=== PATIENT | female | born 1955 | race Two or more races ===

== ENCOUNTER 2025-02-20 20:46 | Emergency (ER) | payer OTHER ==
[~2025-02-20] VITALS: Ht 157.5 cm; Wt 82.6 kg
[2025-02-20 21:27] VITALS: BP 125/80; O2SAT 98
[2025-02-20] MEDS ORDERED: SYNTHROID137 MCG PO (21:29)
[2025-02-20] MEDS ORDERED: 0.9 % SODIUM CHLORIDE 1,000 ML IV STA (22:56)
[2025-02-20] MEDS ORDERED: BARIUM SULFATE 450 ML ORAL.SUSP PO ONE (23:21)
[2025-02-21 00:35] LABS: BASO % 0.9 % (0.1-1.2); EOS # 0.11 (0.04-0.54); EOS % 1.9 % (0.7-7.0); LYMPH # 1.82 (1.18-3.74); LYMPH % 31.8 % (19.3-53.1); MEAN PLATELET VOLUME 10.00 fl (9.4-12.4); MONO # 0.47 (0.24-0.82); MONO % 8.2 % (4.7-12.5); NEUT # 3.26 (1.56-6.13); NEUT % 57.0 % (34.0-71.1); RED CELL DISTRIBUTION WIDTH 13.0 % (11.6-14.4)
[2025-02-21 00:48] LABS: ERYTHROCYTE SEDIMENTATION RATE 5 mm/hr (0-30)
[2025-02-21 00:53] LABS: ALT/SGPT 20 U/L (12-78); AST/SGOT 20 U/L (15-37); BILIRUBIN TOTAL 0.53 mg/dL (0.3-1.2); BUN CREA RATIO 14 (7.0-25.0); CREATININE SERUM 0.94 mg/dL (0.55-1.02); GFR 59.22; GLOBULINA 3.0 G/DL (2.4-3.5); GLUCOSE FASTING 103 mg/dL (65-100); OSMOLALITY SERUM 285 MOSM/KG (275-295)
[2025-02-21] MEDS ORDERED: LEVSIN/SL0.125 MG SL (04:18)
== END 2025-02-21 04:42 ==
LOC: ER 21:17
PROVIDERS: General Practice
DX: R10.9 Unspecified abdominal pain (principal); R10.2 Pelvic and perineal pain
CPT/HCPCS: 36415; 74177; 96365; 96366; 99284; J7030; Q9965